=== PATIENT | female | born 1990 | race Caucasian/White ===

== ENCOUNTER 2019-11-02 07:00 | Emergency (ER) | payer MEDICAID, SELFPAY ==
[2019-11-02 07:02] VITALS: BP 112/72; PULSE 78; RESP 18; TEMP 36.7; O2SAT 95; BMI 39.5
[2019-11-02 07:33] VITALS: BMI 39.5
[2019-11-02 07:34] LABS: Microscopic, Urine URINE MICROSCOPIC (MICROSCOPIC)
[2019-11-02 07:35] LABS: Appearance,Urine SL CLOUDY (Clear); Bilirubin,Urine Negative (Negative); Blood, Urine TRACE-I (Negative); Color,Urine YELLOW (Yellow); Glucose,Urine (UA) Negative (Negative); Ketones,Urine Negative (Negative); Leukocyte Esterase,Urine 2+ (Negative); Nitrate,Urine Negative (Negative); Protein,Urine Negative (Negative); Urobilinogen,Urine 0.2 EU/dl (0.2)
--- NOTE | 2019-11-02 07:36 | XR_ITS ---
PROCEDURE: XR CHEST 2V CLINICAL HISTORY: back pain COMPARISON: No exams were available for comparison FINDINGS: The cardiomediastinal silhouette and pulmonary vascularity are within normal limits. The lungs are clear without infiltrates, suspicious nodules, or pleural effusions. No acute bony abnormalities. IMPRESSION: No acute findings. Dictated by: Flip Andres 11/02/2019 17:32 Electronically signed by Flip Andres in [facility] 11/02/2019 17:32
[2019-11-02 07:40] LABS: Urine Pregnancy, HCG Qual. Negative (Negative)
[2019-11-02 07:42] LABS: Bacteria,Urine 2+ /lpf; RBC,Urine Occasional #/hpf (0-3)
[2019-11-02 07:44] LABS: Basophils # 0.1 K/mm3 (0-0.2); Basophils % 0.8 % (0.1-2.0); Eosinophils # 0.8 K/mm3 (0.0-0.4); Eosinophils % 6.3 % (0.1-12.0); Hematocrit 44.1 % (37.0-47.0); Hemoglobin 14.7 g/dL (12.2-16.2); Lymphocytes # 3.2 K/mm3 (0.7-4.5); Lymphocytes % 26.9 % (10-50); Mean Corpuscular HGB Conc 33.4 g/dL (31.8-35.4); Mean Corpuscular Hemoglobin 30.9 pg (27.0-31.2); Mean Corpuscular Volume 92.5 fl (81-99); Mean Platelet Volume 7.9 fl (7.4-10.4); Monocytes # 0.8 K/mm3 (0.1-1.0); Monocytes % 6.7 % (1.7-9.3); Neutrophils # 7.1 K/mm3 (1.8-7.8); Neutrophils % 59.3 % (37.0-80.0); Platelet Count 277 K/mm3 (142-424); Red Blood Count 4.77 M/mm3 (4.20-5.40); Red Cell Distribution Width 13.1 % (11.5-17.5); White Blood Count 11.9 K/mm3 (4.8-10.8)
--- NOTE | 2019-11-02 07:54 | HMH.EDGENADL ---
ED Disposition Clinical Impression: Acute bronchitis, Urinary tract infection Disposition: Home, Self-Care Condition on Discharge: Good Instructions: DI for Low Back Pain Additional Instructions: Follow-up with your primary care provider on Tuesday. Return to the emergency department immediately if symptoms are worse. Prescriptions: levoFLOXacin [Levaquin] 500 mg PO DAILY 7 Days #7 tab Prescription Printed Referrals: Angella Ramachandran MD [Primary Care Provider] - Time of Disposition: 09:44 - Critical Care Critical Care Time: No Attestation: On 11/02/19, the high probability of a clinically significant, sudden or life threatening deterioration of the following system(s) required my full and direct attention, intervention and personal management. The time I documented below is in addition to time spent performing reported procedures but includes the following listed in this critical care notation. Medical Decision Making - Medical Records Medical records reviewed: Yes: I reviewed the patient's medical records. - Mt Inquiry Pt receiving controlled substance: No Vital Signs: 11/02/19 07:02 Temperature 98.1 F Temperature Source Oral Pulse Rate [Right] 78 Respiratory Rate 18 Blood Pressure [Right Arm] 112/72 Blood Pressure Mean [Right Arm] 85 02 Sat by Pulse Oximetry 95 - Lab Data Lab results reviewed: Yes: I reviewed the patient's lab results. Lab Results 11/02/19 07:10: Urine Color Yellow, Urine Appearance Sl cloudy, Urine pH 7.0, Ur Specific [place] 1.020, Urine Protein Negative, Urine Glucose (UA) Negative, Urine Ketones Negative, Urine Blood Trace-i, Urine Nitrate Negative, Urine Bilirubin Negative, Urine Urobilinogen 0.2, Ur Leukocyte Esterase 2+ A, Urine RBC Occasional, Urine WBC 5-10, Ur Squamous Epith Cells 5-10, Urine Bacteria 2+ 11/02/19 07:10: Urine HCG, Qual Negative 11/02/19 07:20: WBC 11.9 H, RBC 4.77, Hgb 14.7, Hct 44.1, MCV 92.5, MCH 30.9, MCHC 33.4, RDW 13.1, Plt Count 277, MPV 7.9, Neut % (Auto) 59.3, Lymph % (Auto) 26.9, [place] % (Auto) 6.7, Eos % (Auto) 6.3, Baso % (Auto) 0.8, Neut # (Auto) 7.1, Lymph # (Auto) 3.2, [place] # (Auto) 0.8, Eos # (Auto) 0.8 H, Baso # (Auto) 0.1 11/02/19 07:20: Sodium 139, Potassium 4.1, Chloride 103, Carbon Dioxide 29, Anion Gap 11.1, BUN 13, Creatinine 0.76, Estimated Creat Clear 190, Estimated GFR 89, Est GFR ( Amer) 108, Glucose 76, Calcium 8.7, Total Bilirubin 0.2, AST 9 L, ALT 20, Alkaline Phosphatase 77, Total Protein 6.6, Albumin 3.2 L, Globulin 3.4 H, Albumin/Globulin Ratio 0.9 L, Amylase 34, Lipase 90, TSH 1.46, Thyroxine (T4) 7.5 Result diagrams: 11/02/19 07:20 11/02/19 07:20 Orders (Tests/Meds): ORDERS Category Date Time Status XR chest 2V Stat Exams 11/02/19 07:36 Taken Urine Culture Stat Micro 11/02/19 07:10 Received General Adult HPI - General Chief complaint: Back Pain/Injury Stated complaint: Blurred vision,dizziness,lower back pain Time Seen by Provider: 11/02/19 07:30 Mode of Arrival: Ambulatory Limitations: No Limitations Description of Symptoms (Recalled from ER Triage Doc. by RN): Pt c/o back pain for 3 weeks, nausea, and dizziness. Denies fever or V/D. - History of Present Illness HPI narrative: 29-year-old female complains of 3 weeks of back pain with 3 days of lightheadedness, nausea, cough and fatigue. Consistency: constant Relieving factors: none Exacerbating factors: none Associated symptoms: cough, malaise, nausea/vomiting, weakness. negative: confusion, chest pain, diaphoresis, fever/chills, headaches, loss of appetite, rash, seizure, shortness of breath, syncope Treatments prior to arrival: none - Related Data Home Medications Medication Instructions Recorded Confirmed Citalopram Hydrobromide [Celexa 40 mg PO DAILY 11/02/19 11/02/19 40mg Tablet] diazePAM [Valium 2mg tablet] 2 mg PO DAILY 11/02/19 11/02/19 Previous Rx's Medication Instructions Recorded levoFLOXacin [Levaquin]
[2019-11-02 07:57] LABS: Alanine Aminotransferase 20 U/L (12-78); Albumin Level 3.2 gm/dL (3.4-5.0); Albumin/Globulin Ratio 0.9 (1.1-1.8); Alkaline Phosphatase 77 U/L (46-116); Amylase 34 U/L (25-115); Anion Gap 11.1 mEq/L (5-15); Aspartate Amino Transferase 9 U/L (15-37); Bilirubin,Total 0.2 mg/dL (0.2-1.0); Blood Urea Nitrogen 13 mg/dL (7-18); Calcium 8.7 mg/dL (8.5-10.1); Carbon Dioxide 29 mmol/L (21.0-32.0); Chloride 103 mmol/L (98-107); Creatinine Clearance Estimated 190 mL/min (50-200); Creatinine,Serum 0.76 mg/dL (0.55-1.02); Estimated Glomerular Filt Rate 89 ml/min (>60); GFR (African American) 108 ML/MIN (>60); Globulin 3.4 gm/dl (1.3-3.2); Glucose 76 mg/dL (74-106); Lipase 90 u/L (73-393); Potassium 4.1 mmoL/L (3.5-5.1); Sodium 139 mmol/L (136-145); T4 (Thyroxine) 7.5 ug/dl (4.7-13.3); Thyroid Stimulating Hormone 1.46 uIU/ml (0.358-3.740); Total Protein,Serum 6.6 gm/dL (6.4-8.2)
--- NOTE | 2019-11-02 08:02 | PC.NURSE ---
Pt to rad
[2019-11-02 09:54] VITALS: BP 132/86; PULSE 74; RESP 18; TEMP 36.8; O2SAT 99
== END 2019-11-02 09:55 | disposition home or self-care (01) ==
PROVIDERS: Emergency Medicine; Emergency Provider Emergency Medicine; PCP Nurse Practitioner
DX: J20.9 Acute bronchitis, unspecified (principal); N30.00 Acute cystitis without hematuria
CPT/HCPCS: 71046; 80053; 81001; 81025; 82150; 83690; 84436; 84443; 85025; 87086; 99283

== ENCOUNTER 2021-07-29 09:46 | Emergency (ER) | payer OTHER, MEDICAID, SELFPAY ==
[2021-07-29 10:02] VITALS: BP 136/88; PULSE 85; RESP 21; TEMP 36.6; O2SAT 98; BMI 44.2
--- NOTE | 2021-07-29 10:34 | XR_ITS ---
PROCEDURE: XR LUMBAR SPINE 2-3V CLINICAL INDICATION: pain Low back pain the COMPARISON: CR XR CHEST 2V from 11/02/2019 FINDINGS: Mild lumbar scoliosis convex right. Degenerative changes in the lower thoracic spine with mild chronic wedging T10-T11 and T12. The lumbar spine has an unremarkable appearance. No fracture or dislocation. No lytic or blastic change. There is an IUD in place. IMPRESSION: Degenerative changes lower thoracic spine with mild lumbar scoliosis convex right otherwise negative Dictated by: Marques Tang MD 07/29/2021 11:12 Marques Tang MD in [facility] 07/29/2021 11:12
[2021-07-29 10:45] LABS: Apearance,Urine Clear (Clear); Bilirubin,Urine Negative (Negative); Blood, Urine Negative (Negative); Color,Urine Yellow (Yellow); Glucose,Urine (UA) Negative (Negative); Ketones,Urine Negative (Negative); Protein,Urine Negative (Negative); UTC Leukocyte Esterase,Urine Negative (Negative); UTC Nitrate,Urine Negative (Negative); UTC Pregnancy Test, Urine Negative (Negative); Urobilinogen,Urine 0.2 EU/dl (0.2)
--- NOTE | 2021-07-29 10:53 | HMH.EDUTC ---
[facility] [place] Clinical Impression: Muscle spasm Disposition: Home, Self-Care Condition on Discharge: Good Instructions: Methocarbamol, DI for Muscle Spasm Additional Instructions: *Ibuprofen as previously prescribed with meal as needed for pain/inflammation *Remember you had a Toradol shot in the clinic today, which is similar to Motrin *Not additional anti-inflammatory like motrin, aleve, advil with the above amount of ibuprofen. You can still take Tylenol every 4 hours as needed if you need something else for pain *Ice 20 minutes every 2 hours for the first 48 hours after the initial injury followed by moist heat every 20 minutes 3-4 times a day to affected area *Muscle relaxer every 8 hours as needed for muscle spasms but remember, it WILL cause drowsiness You cannot take it and drive, operate machinery or care for small children. *Keep this area active, no movement leads to more stiffness, However take it easy and avoid heavy lifting pushing or pulling *Follow up with you family doctor if no improvement for further treatment Prescriptions: methylPREDNISolone [Medrol 4mg tab] 4 mg PO DIRECTED #21 tab Prescription Printed methocarbamoL [Methocarbamol] 500 mg PO BID PRN #10 tab PRN Reason: Muscle Spasm Prescription Printed Referrals: Angella Ramachandran MD [Primary Care Provider] - As needed Forms: Work/School Release Time of Disposition: 11:21 Medical Decision Making - Mt Inquiry Pt receiving controlled substance: No Mt was queried for this patient: No Vital Signs: 07/29/21 10:02 Temperature 98 F Temperature Source Oral Pulse Rate [Left] 85 Respiratory Rate 21 Blood Pressure [Right Arm] 136/88 Blood Pressure Mean [Right Arm] 104 02 Sat by Pulse Oximetry 98 - Lab Data Lab Results 07/29/21 10:34: Urine Color Yellow, Urine Appearance Clear, Urine pH 6.0, Ur Specific [place] 1.020, Urine Protein Negative, Urine Glucose (UA) Negative, Urine Ketones Negative, Urine Blood Negative, Urine Nitrate Negative, Urine Bilirubin Negative, Urine Urobilinogen 0.2, Ur Leukocyte Esterase Negative, Tst Clinic Negative - Radiology Data #1 Image(s): L-Spine Image Reviewed: Yes I have reviewed radiologist's interpretation Degenerative changes lower thoracic spine with mild lumbar scoliosis convex right otherwise negative Medical Decision Narrative: Discussed with patient about transfer to the ED and patient declined state that she has appointment with her PCP tomorrow and she would follow up then [facility] [place] - General Stated complaint: numbness in hands and lower back Time Seen by Provider: 07/29/21 10:53 Mode of Arrival: Ambulatory Source of Information: Patient Limitations: No Limitations Description of Symptoms (Recalled from Triage Doc. by RN): pt c/o pain and numbness in both hands. pt also c/o R arm and L lower back. pt started a new job about a week and a half ago and has been having trouble ever since. 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
[2021-07-29 11:22] VITALS: BP 136/88; PULSE 85; RESP 21; TEMP 36.6
== END 2021-07-29 11:25 | disposition home or self-care (01) ==
PROVIDERS: Emergency Provider Nurse Practitioner; PCP Nurse Practitioner
DX: M62.830 Muscle spasm of back (principal); R20.0 Anesthesia of skin; F17.210 Nicotine dependence, cigarettes, uncomplicated
CPT/HCPCS: 72100; 81003; 81025; 99202; G0463

== ENCOUNTER 2022-02-15 14:36 | Emergency (ER) | payer MEDICAID, SELFPAY ==
[2022-02-15 15:30] VITALS: BP 164/89; PULSE 71; RESP 18; TEMP 36.8; O2SAT 97; BMI 45.4
[2022-02-15 15:51] LABS: UTC Influenza A Antigen Negative (Negative)
[2022-02-15 15:52] LABS: UTC Influenza B Antigen Negative (Negative)
[2022-02-15 15:57] LABS: Strep Scrn Group A (Rapid) Negative (Negative)
[2022-02-15 16:47] VITALS: BP 164/89; PULSE 71; RESP 18; TEMP 36.8; O2SAT 97
--- NOTE | 2022-02-15 16:59 | HMH.EDUTC ---
[facility] [place] Disposition Clinical Impression: Viral syndrome, Bronchitis Disposition: Home, Self-Care Condition on Discharge: Good Instructions: DI for Acute Bronchitis, DI for Viral Syndrome Additional Instructions: Drink plenty of fluids. Take tylenol or ibuprofen for pain or fever. Take the medications as directed. Follow up with your regular doctor. GO TO THE ER FOR ANY WORSENING SYMPTOMS Don't start the oral steroids until tomorrow, since you had the shot here today. The cough medication (promethazine dm) will make you drowsy, so don't drive or operate heavy machinery after taking it. Prescriptions: Promethazine/Dextromethorphan [Promethazine-Dm Syrup] 5 ml PO Q6HP PRN #240 ml PRN Reason: Cough Transmission Status: Received by [facility] methylPREDNISolone [Medrol] 4 mg PO DIRECTED 6 Days #21 packet Transmission Status: Received by [facility] Azithromycin [Z-Giovanny 250mg Tab*] 250 mg PO UD DOSE PK #6 tab Transmission Status: Received by [facility] Referrals: Provider,Referral, [Primary Care Provider] - Forms: Work/School Release Time of Disposition: 17:03 Medical Decision Making - Medical Records Medical records reviewed: No: I reviewed the patient's medical records. - Mt Inquiry Pt receiving controlled substance: No Vital Signs: 02/15/22 15:30 02/15/22 16:47 Temperature 98.2 F 98.2 F Temperature Source Oral Pulse Rate 71 Pulse Rate [Right Brachial] 71 Respiratory Rate 18 18 Blood Pressure 164/89 H Blood Pressure [Right Arm] 164/89 H Blood Pressure Mean [Right Arm] 114 Blood Pressure Source [Right Arm] Automatic Cuff Blood Pressure Position [Right Arm] Sitting 02 Sat by Pulse Oximetry 97 Oxygen Delivery Method Room Air - Lab Data Lab results reviewed: Yes: I reviewed the patient's lab results. Lab Results 02/15/22 15:30: Group A Strep Rapid Negative 02/15/22 15:41: Influenza Type A Ag Negative, Influenza Type B Ag Negative Orders (Tests/Meds): ED MEDICATIONS Discontinued Medications Generic Name Dose Route Start Last Admin Trade Name Freq PRN Reason Stop Dose Admin Methylprednisolone Sodium Succinate 125 mg 02/15/22 16:41 02/15/22 16:47 Methylprednisolone Sod Succ 125mg Vial IM 02/15/22 16:42 125 mg ONCE ONE Administration [facility] [place] HPI - General Stated complaint: hoarseness, GRIFFITH, fever, dizzy Time Seen by Provider: 02/15/22 16:59 Mode of Arrival: Ambulatory Source of Information: Patient Limitations: No Limitations Description of Symptoms (Recalled from Triage Doc. by RN): PATIENT C/O EYE DRAINAGE, FEVER, NAUSEA, LOSS OF VOICE, HEADACHE, SOA AND DRY COUGH X 2 DAYS HEENT Symptoms (Recalled from RN notes): Yes Resp Symptoms (Recalled from RN notes): No Skin Symptoms (Recalled from RN notes): No MS Symptoms (Recalled from RN notes): No Functional Status (Recalled from RN notes): WNL - History of Present Illness Provider Complaint: HE states that he has had a cough chest congestion and low grade fever for the past 3 days. - Related Data Home Medications Medication Instructions Recorded Confirmed Citalopram Hydrobromide 60 mg PO DAILY 11/02/19 02/15/22 [Citalopram 40mg Tablet] diazePAM [Valium 2mg tablet] 2 mg PO TID 11/02/19 02/15/22 Previous Rx's Medication Instructions Recorded Azithromycin [Z-Giovanny 250mg Tab*] 250 mg PO UD DOSE PK #6 tab 02/15/22 Promethazine/Dextromethorphan 5 ml PO Q6HP PRN #240 ml 02/15/22 [Promethazine-Dm Syrup] methylPREDNISolone [Medrol] 4 mg PO DIRECTED 6 Days #21 02/15/22 packet Allergies Allergy/AdvReac Type Severity Reaction Status Date / Time No Known Allergies Allergy Verified 11/02/19 07:33 - Worker's Comp Is this a Worker's Comp case?: No [facility] History - Hepatitis A Screen Drug use history?: No High risk sexual behaviors?: No History of sexually transmitted infection?: No Currently employed?: No Childcare worker?: No Do you have i
== END 2022-02-15 17:14 | disposition home or self-care (01) ==
PROVIDERS: Emergency Provider Nurse Practitioner Family
DX: J20.9 Acute bronchitis, unspecified (principal); B34.9 Viral infection, unspecified; F17.210 Nicotine dependence, cigarettes, uncomplicated
CPT/HCPCS: 87430; 87804; 96372; 99212; G0463

== ENCOUNTER 2022-05-12 08:55 | Emergency (ER) | payer MEDICAID, SELFPAY ==
[2022-05-12 09:16] VITALS: BP 118/76; PULSE 91; RESP 18; TEMP 36.6; O2SAT 98; BMI 44.4
--- NOTE | 2022-05-12 09:23 | HMH.EDUTC ---
[facility] [place] Impression: UTI (urinary tract infection) Qualifiers: Urinary tract infection type: site unspecified Hematuria presence: with hematuria Qualified Code(s): N39.0 - Urinary tract infection, site not specified Disposition: Home, Self-Care Condition on Discharge: Good Instructions: Urinary Tract Infection, Urine Culture, DI for Urinary Tract Infection (UTI), Phenazopyridine Additional Instructions: Drink plenty of fluids. Take tylenol or ibuprofen for pain or fever. Take the medications as directed. Follow up with your regular doctor. GO TO THE ER FOR ANY WORSENING SYMPTOMS The pyridium will make your urine turn orange, this is an expected side effect. It will stain your clothes if it comes into contact with them. We will culture the urine. That will tell what bacteria is causing your infection and which antibiotics will treat it best. Sometimes the first antibiotic we prescribe turns out to not work against different bacteria. So, make sure you follow up within 3 days if you are not getting better. Prescriptions: Ondansetron [Zofran 4mg ODT] 4 mg PO Q8HP PRN #20 tab PRN Reason: Nausea Transmission Status: Received by [facility] Sulfamethoxazole/Trimethoprim [Bactrim DS tablet] 1 each PO BID 7 Days #14 tab Transmission Status: Received by [facility] Phenazopyridine HCl [Pyridium 200mg Tablet] 200 pow PO TID #6 tab Transmission Status: Received by [facility] Referrals: Wayne Willis [Primary Care Provider] - Forms: Work/School Release Time of Disposition: 09:44 Medical Decision Making - Medical Records Medical records reviewed: No: I reviewed the patient's medical records. - Mt Inquiry Pt receiving controlled substance: No Vital Signs: 05/12/22 09:16 05/12/22 09:47 Temperature 97.8 F 97.8 F Temperature Source Oral Pulse Rate 91 H Pulse Rate [Left] 91 H Respiratory Rate 18 18 Blood Pressure 118/76 Blood Pressure [Right Arm] 118/76 Blood Pressure Mean [Right Arm] 90 02 Sat by Pulse Oximetry 98 - Lab Data Lab results reviewed: Yes: I reviewed the patient's lab results. Lab Results 05/12/22 09:31: Urine Color Yellow, Urine Appearance Clear, Urine pH 6.0, Ur Specific [place] >= 1.030, Urine Protein Negative, Urine Glucose (UA) Negative, Urine Ketones Negative, Urine Blood Trace, Urine Nitrate Negative, Urine Bilirubin Negative, Urine Urobilinogen 0.2, Ur Leukocyte Esterase Trace Orders (Tests/Meds): ORDERS Category Date Time Status Urine Culture Stat Micro 05/12/22 09:45 [place] [facility] [place] - General Stated complaint: frequent urinating, burning,back pain Time Seen by Provider: 05/12/22 09:23 - History of Present Illness Provider Complaint: She c/o low back pain and dysuria for the past 2 days. - Related Data Home Medications Medication Instructions Recorded Confirmed Citalopram Hydrobromide 60 mg PO DAILY 11/02/19 02/15/22 [Citalopram 40mg Tablet] diazePAM [Valium 2mg tablet] 2 mg PO TID 11/02/19 02/15/22 Previous Rx's Medication Instructions Recorded Azithromycin [Z-Giovanny 250mg Tab*] 250 mg PO UD DOSE PK #6 tab 02/15/22 Promethazine/Dextromethorphan 5 ml PO Q6HP PRN #240 ml 02/15/22 [Promethazine-Dm Syrup] methylPREDNISolone [Medrol] 4 mg PO DIRECTED 6 Days #21 02/15/22 packet Ondansetron [Zofran 4mg ODT] 4 mg PO Q8HP PRN #20 tab 05/12/22 Phenazopyridine HCl [Pyridium 200 pow PO TID #6 tab 05/12/22 200mg Tablet] Sulfamethoxazole/Trimethoprim 1 each PO BID 7 Days #14 tab 05/12/22 [Bactrim DS tablet] Allergies Allergy/AdvReac Type Severity Reaction Status Date / Time No Known Allergies Allergy Verified 05/12/22 09:30 [facility] History - Hepatitis A Screen Attestation statement:: This patient has been screened for Hepatitis A risk factors. I have reviewed the patient's past medical history: Yes Laterality Cases: Bilateral: Tonsillectomy - Soci
[2022-05-12 09:45] LABS: Apearance,Urine Clear (Clear); Color,Urine Yellow (Yellow)
[2022-05-12 09:46] LABS: Bilirubin,Urine Negative (Negative); Blood, Urine Trace (Negative); Glucose,Urine (UA) Negative (Negative); Ketones,Urine Negative (Negative); Protein,Urine Negative (Negative); Specific Gravity, Urine >= 1.030 (1.005-1.030); UTC Leukocyte Esterase,Urine Trace (Negative); UTC Nitrate,Urine Negative (Negative); Urobilinogen,Urine 0.2 EU/dl (0.2)
[2022-05-12 09:47] VITALS: BP 118/76; PULSE 91; RESP 18; TEMP 36.6
== END 2022-05-12 09:53 | disposition home or self-care (01) ==
PROVIDERS: Emergency Provider Nurse Practitioner Family; PCP Family Medicine
DX: N39.0 Urinary tract infection, site not specified (principal)
CPT/HCPCS: 81003; 87086; 99212; G0463

== ENCOUNTER 2022-05-31 10:08 | Emergency (ER) | payer MEDICAID, SELFPAY ==
[2022-05-31 10:35] VITALS: BP 123/67; PULSE 72; RESP 18; TEMP 36.9; O2SAT 96; BMI 43.5
--- NOTE | 2022-05-31 11:05 | HMH.EDUTC ---
[facility] [place] Disposition Clinical Impression: Encounter for laboratory testing for COVID-19 virus Disposition: Home, Self-Care Condition on Discharge: Good Instructions: DI for COVID-19 (Suspected or Confirmed ), Preventing the Spread of Coronavirus Discharge Instructions Additional Instructions: *Monitor Temp, Over the counter Motrin or Tylenol as directed/as needed Tylenol every 4 hours and Motrin every 6 hours (as long as your family doctor has told you that you can take it) for fever or pain. and straight to ER if unable to lower temp less than 101.0 after medication given *Warm salt water gargles may help to soothe the throat *Throat Lozenges *Warm fluids like tea with honey may help to soothe the throat *Sleep elevated *Humidifier/Vaporizer Follow up IMMEDIATELY for new or worsening symptoms or no Noticeable improvement over the next 48-72 hours. 911 for difficulty breathing or swallowing You were tested for today for COVID19 your test result should be back in the next 24-48 hours, you may check your results on the [facility] My Health Portal Make sure to take your Vitamins Vit. C Vit D and Zinc if you can take them Prescriptions: Meclizine HCl [Antivert 12.5mg tablet] 12.5 mg PO Q8HP PRN #9 tab PRN Reason: Dizziness Transmission Status: Pending to [facility] methylPREDNISolone [Medrol 4mg tab] 4 mg PO DIRECTED #21 tab Transmission Status: Pending to [facility] Cefdinir [Omnicef 300mg Capsule] 300 mg PO BID #20 cap Transmission Status: Pending to [facility] Referrals: Edel Honeycutt APRN [Primary Care Provider] - As needed Forms: Work/School Release Medical Decision Making - Mt Inquiry Pt receiving controlled substance: No Mt was queried for this patient: No Vital Signs: 05/31/22 10:35 Temperature 98.5 F Temperature Source Oral Pulse Rate [Right Brachial] 72 Respiratory Rate 18 Blood Pressure [Right Arm] 123/67 Blood Pressure Mean [Right Arm] 85 Blood Pressure Source [Right Arm] Automatic Cuff Blood Pressure Position [Right Arm] Sitting 02 Sat by Pulse Oximetry 96 Oxygen Delivery Method Room Air Orders (Tests/Meds): ORDERS Category Date Time Status Covid-19 Nasal PCR ([facility]) Routine Lab 05/31/22 10:32 Received [facility] [place] HPI - General Stated complaint: covid test Time Seen by Provider: 05/31/22 10:50 Mode of Arrival: Ambulatory Source of Information: Patient Limitations: No Limitations Description of Symptoms (Recalled from Triage Doc. by RN): PATIENT C/O NAUSEA, DIZZINESS, EAR ACHE AND BODY ACHES. EXPOSED TO COVID LAST WEEK HEENT Symptoms (Recalled from RN notes): Yes Resp Symptoms (Recalled from RN notes): No Skin Symptoms (Recalled from RN notes): No MS Symptoms (Recalled from RN notes): No Functional Status (Recalled from RN notes): WNL - History of Present Illness Provider Complaint: Patient states that she was exposed to someone that has COVID last week States that she is now having nausea, dizziness on and off, pain and pressure in both ears and body aches State that today she was still feeling bad so she came in to get checked out - Related Data Home Medications Medication Instructions Recorded Confirmed Citalopram Hydrobromide 60 mg PO DAILY 11/02/19 02/15/22 [Citalopram 40mg Tablet] diazePAM [Valium 2mg tablet] 2 mg PO TID 11/02/19 02/15/22 Previous Rx's Medication Instructions Recorded Azithromycin [Z-Giovanny 250mg Tab*] 250 mg PO UD DOSE PK #6 tab 02/15/22 Promethazine/Dextromethorphan 5 ml PO Q6HP PRN #240 ml 02/15/22 [Promethazine-Dm Syrup] methylPREDNISolone [Medrol] 4 mg PO DIRECTED 6 Days #21 02/15/22 packet Ondansetron [Zofran 4mg ODT] 4 mg PO Q8HP PRN #20 tab 05/12/22 Phenazopyridine HCl [Pyridium 200 pow PO TID #6 tab 05/12/22 200mg Tablet] Sulfamethoxazole/Trimethoprim 1 each PO BID 7 Days #14 tab 05/12/22 [Bactrim DS tablet] Fluconazole [Diflucan 150mg tab] 150 mg PO ONCE #1 tab 05/18/22 Cefdinir
[2022-05-31 11:14] VITALS: BP 123/67; PULSE 72; RESP 18; TEMP 36.9; O2SAT 96
== END 2022-05-31 11:16 | disposition home or self-care (01) ==
PROVIDERS: Emergency Provider Nurse Practitioner; PCP Nurse Practitioner Family
DX: Z20.822 Contact with and (suspected) exposure to COVID-19 (principal); R11.0 Nausea
CPT/HCPCS: 99212; C9803; G0463; U0003; U0005

== ENCOUNTER → 2023-01-07 07:45 | Outpatient (CLI) | payer MEDICAID, SELFPAY ==
--- NOTE | 2023-01-07 07:45 | US_ITS ---
FINAL REPORT TECHNIQUE: Sonographic images of the pelvis were obtained transvaginally. CLINICAL HISTORY: severe left-sided pelvic pain COMPARISON: none FINDINGS: The uterus is anteverted and anteflexed. It measures 7.5 x 3.3 x 5.3 cm. The endometrial stripe measures 3 mm. The myometrium is homogeneous. There are nabothian cysts in the cervix. IUD is noted within the endometrial cavity. The right ovary measures 2.8 x 2.0 x 2.5 cm. It is normal in appearance. The left ovary measures 3.1 x 2.0 x 2.0 cm. It is normal in appearance. Color imaging to the ovaries is within normal limits. There is no free fluid. IMPRESSION: IUD within the endometrial cavity. Otherwise unremarkable ultrasound of the pelvis for age. Reviewed, Interpreted and Dictated by Danae Kohli MD Transcribed by Debbie Figueroa Authenticated and [facility]
== END ==
PROVIDERS: PCP Nurse Practitioner Family; Visit Provider Nurse Practitioner Obstetrics & Gynecology
DX: R10.2 Pelvic and perineal pain (principal)
CPT/HCPCS: 76830

== ENCOUNTER → 2023-02-24 09:57 | Outpatient (CLI) | payer MEDICAID, SELFPAY ==
[2023-02-24 10:21] LABS: Basophils # 0.1 K/mm3 (0-0.2); Basophils % 0.7 % (0.1-2.0); Eosinophils # 0.3 K/mm3 (0.0-0.4); Eosinophils % 3.3 % (0.1-12.0); Hematocrit 42.8 % (37.0-47.0); Hemoglobin 13.8 g/dL (12.2-16.2); Lymphocytes # 2.6 K/mm3 (0.7-4.5); Mean Corpuscular HGB Conc 32.2 g/dL (31.8-35.4); Mean Corpuscular Hemoglobin 29.4 pg (27.0-31.2); Mean Corpuscular Volume 91.2 fl (81-99); Mean Platelet Volume 8.1 fl (7.4-10.4); Monocytes # 0.6 K/mm3 (0.1-1.0); Monocytes % 6.7 % (1.7-9.3); Neutrophils # 5.1 K/mm3 (1.8-7.8); Neutrophils % 59.4 % (37.0-80.0); Platelet Count 262 K/mm3 (142-424); Red Cell Distribution Width 13.5 % (11.5-17.5); White Blood Count 8.6 K/mm3 (4.8-10.8)
[2023-02-24 11:09] LABS: Chloride 104 mmol/L (98-107); Potassium 4.4 mmoL/L (3.5-5.1); Sodium 137 mmol/L (136-145)
[2023-02-24 11:12] LABS: Alanine Aminotransferase 18 U/L (12-78); Albumin Level 3.9 g/dl (3.5-5.0); Albumin/Globulin Ratio 1.6 (1.1-1.8); Alkaline Phosphatase 62 U/L (38-126); Anion Gap 10.4 mEq/L (5-15); Aspartate Amino Transferase 19 U/L (14-36); Bilirubin,Total 0.4 mg/dl (0.2-1.3); Blood Urea Nitrogen 13 mg/dl (7-17); Calcium 8.9 mg/dl (8.4-10.2); Carbon Dioxide 27 mmol/L (22.0-30.0); Estimated Glomerular Filt Rate 83 ml/min (>60); GFR (African American) 100 ML/MIN (>60); Globulin 2.5 g/dL (1.3-3.2); Glucose 84 mg/dl (74-100); Total Protein,Serum 6.4 g/dl (6.3-8.2)
[2023-02-24 11:29] LABS: HCG,Quantitative < 2 mIU/ml (0-5.42)
== END ==
PROVIDERS: PCP Nurse Practitioner; Visit Provider Nurse Practitioner Obstetrics & Gynecology
DX: Z01.812 Encounter for preprocedural laboratory examination (principal); R10.2 Pelvic and perineal pain
CPT/HCPCS: 36415; 80053; 84702; 85025

== ENCOUNTER 2023-03-03 05:54 | Day surgery (SDC) | payer MEDICAID, SELFPAY ==
[2023-03-01 13:02] VITALS: BMI 41.9
[2023-03-03] VITALS (10 sets, daily range): BP systolic 119–157; BP diastolic 74–88; PULSE 53–92; RESP 14–18; TEMP 36.2–37; O2SAT 96–100
[2023-03-03 06:19] LABS: Urine Pregnancy, HCG Qual. Negative (Negative)
--- NOTE | 2023-03-03 07:11 | EXP.ANES.CKL ---
[facility] Disclaimer: The information contained in this section may have been updated after the patient was seen, as this information can be updated by other users. Medical History Anxiety Depression Surgical History History of tonsillectomy Family History Other Alcoholism Asthma Cancer Coronary artery disease Diabetes FHx: mental illness Hyperlipidemia Hypertension Social History Smoking Status: Current every day smoker alcohol intake: never substance use type: former substance user and marijuana current occupational status: unemployed and other Travel in the last 8 weeks: None [facility] Anesthesia Checklist Patient Identification Patient Identification: Verbal (Name & ) Structural Data Admitted From: Home Planned Operative Procedure/s: dx laparoscopy Consent for Planned Operative Procedure(s) Verified: Yes Additional verifications Anesthesia Reactions: No Hx Blood Transfusions: No Blood Transfusion Reaction: No Airway Assessment C-Spine Mobility Assessed: Yes TMJ Mobility Assessed: Yes Dentition: Good Dentition Neurological Assessment Level of Consciousness: Awake, Alert and Appropriate Anesthesia Plan Anesthesia Risk discussed: Yes Anesthesia Plan: Verified ASA Class: II Anesthesia Type: General
--- NOTE | 2023-03-03 08:46 | EXP.ANES.CKL ---
[facility] Disclaimer: The information contained in this section may have been updated after the patient was seen, as this information can be updated by other users. Medical History Anxiety Depression Surgical History History of tonsillectomy Family History Other Alcoholism Asthma Cancer Coronary artery disease Diabetes FHx: mental illness Hyperlipidemia Hypertension Social History Smoking Status: Current every day smoker alcohol intake: never substance use type: former substance user and marijuana current occupational status: unemployed and other Travel in the last 8 weeks: None [facility] Anesthesia Checklist Patient Identification Patient Identification: Arm Band and Verbal (Name & ) Structural Data Admitted From: Home Planned Operative Procedure/s: Diagnostic Laparoscopy Consent for Planned Operative Procedure(s) Verified: Yes Verified Documents: Surgical Consent NPO Status Verified Time NPO: 01:00 Chart Verification Results Verified: HCG Additional verifications Anesthesia Reactions: No Hx Blood Transfusions: No Blood Transfusion Reaction: No Airway Assessment C-Spine Mobility Assessed: Yes TMJ Mobility Assessed: Yes Dentition: Good Dentition Neurological Assessment Level of Consciousness: Awake, Alert and Appropriate Anesthesia Plan Anesthesia Risk discussed: Yes ASA Class: II Anesthesia Type: General
--- NOTE | 2023-03-03 08:47 | EXP.ANES.I ---
[facility] Anesthesia Record Part I Anesthesia Record I Intake, IV Amount: 800 Estimated blood loss (mL): 5 Urine output (mL): 0 Blood Pressure: 157/76 SaO2: 100 Pulse Rate: 92 Respiratory Rate: 14 Temperature: 98.6 F Patient is:: Drowsy, Nasal O2 and Stable Stable to PACU at:: 08:44
--- NOTE | 2023-03-03 08:57 | EXP.OP.NOTE ---
Date of procedure: 03/03/23 Pre-op Diagnosis:: Pelvic pain, possible endometriosis, dysmenorrhea Post-op Diagnosis:: Pelvic pain, endometriosis left pelvic sidewall, pelvic congestion syndrome, hydatid of morganii Procedure performed:: Diagnostic laparoscopy, resection of endometriosis, lysis of adhesions Surgeon:: Fawad Whitney MD [employer]IOR [employer] DEVELOPER:: John Jaffe Anesthesia: GETA Estimated blood loss (mL): 25 Clinical Note:: She is a 32-year-old lady who complains of severe left-sided pain. It comes and goes. Its worse with her period. After having discussed the risks and benefits we elected perform a diagnostic laparoscopy with possible resection of endometriosis. Operative findings:: She had a normal appearing anteverted uterus. There was an IUD within the uterine cavity. The strings were present at the cervix. She had normal-appearing ovaries bilaterally. The tubes were followed to their fimbriated end. On the left side there was a 1 cm paratubal cyst. The appendix was visualized and appeared normal. The upper abdomen was visualized and appeared normal. There was what appeared to be endometriosis on the left pelvic sidewall near the left uterosacral ligament insertion to the cervix. There were powder burn areas here. There was no evidence of endometriosis elsewhere. The bladder flap was visualized and appeared normal. The attachment of the sigmoid colon on the left side seem to be extra long and prominent so I elected to take this down with harmonic scalpel. There was also what appeared to be varicosities of the infundibulopelvic ligament on the left side consistent with pelvic congestion syndrome. Operative note:: She was taken the operating room where general anesthesia was found to be adequate. She was prepped and draped in normal sterile fashion in the semilithotomy position. A weighted speculum is placed in vagina and the anterior lip of the cervix was grasped with a tenaculum. I then inserted an acorn uterine manipulator into the cervical canal. I changed gloves and then injected 10 cc of ropivacaine around the umbilicus. I made a small incision and inserted a Veress needle into the abdominal cavity. The abdominal cavity was then insufflated with carbon oxide gas to a pressure of 20 mmHg. I then inserted a 5 mm trocar under direct vision. I injected through and through the pubic hairline, made a small incision and inserted a 5 mm trocar here under direct vision. I then injected through and through in the left lower quadrant staying lateral to the inferior epigastric arteries and inserted a 5 mm trocar here under direct vision. The findings were as previously dictated. Using harmonic scalpel and grasping the pelvic sidewall on tension with a [place] grasper I was able to resect an approximately 1 cm? area of pelvic sidewall on the left side that contained what appeared to be endometriosis. I then grasped the sigmoid colon at its attachment to the left pelvic sidewall and took down some of the adhesions here. There was a small serosal tear on the sigmoid and this seems to be very superficial but was bleeding so I put Lane on this area. I then took pictures of the entire pelvis. I then injected approximately 25 cc of ropivacaine into the pelvis and remove the secondary trocars under direct vision. The sites were hemostatic. The gas was let out of the abdomen and remove the primary trocar. All trocar sites were closed with subcuticular 4-0 Monocryl suture. Sterile dressings were applied. She tolerated the procedure well and was taken to the recovery room in excellent condition. All sponge, instrument and needle counts were correct. The estimated blood loss was less than 25 cc. Condition: stable Disposition: PACU Specimens:: Left pelvic sidewall with endometriosis Complications:: None
--- NOTE | 2023-03-03 10:32 | P.PNANES_ITS ---
[facility] Anesthesia Record Part II Anesthesia Record Part II Discharge Time: 09:14 Destination: Surgical Day Care (OP Surgery) PACU nurse assessment reviewed?: Yes Patient Condition:: Good Anesthesia Complications:: None Swallowing reflex intact?: Yes Cyanosis?: No Blood Pressure: 133/74 Pulse Rate: 65 Temperature: 97.2 F Mental Status: Alert & Oriented Pain level:: 0 Nausea and/or vomitting:: None Intake, IV Amount: 0
== END 2023-03-03 09:46 | disposition home or self-care (01) ==
PROVIDERS: PCP Nurse Practitioner; Visit Provider Nurse Practitioner Obstetrics & Gynecology
PROC: (CPT 49320; principal; 2023-03-03 07:30)
DX: N80.352 Endometriosis of the left pelvic sidewall, unspecified depth (principal); Q50.5 Embryonic cyst of broad ligament; R10.2 Pelvic and perineal pain; N94.89 Other specified conditions associated with female genital organs and menstrual cycle
CPT/HCPCS: 58662; 81025; 96374; J2405

== ENCOUNTER 2023-04-15 15:09 | Emergency (ER) | payer MEDICAID, SELFPAY ==
[2023-04-15 15:15] VITALS: BP 142/71; PULSE 73; RESP 19; TEMP 36.9; O2SAT 100; BMI 43.2
--- NOTE | 2023-04-15 15:35 | EXP.UTC ---
Discharge Plan Disposition Patient Disposition: Home, Self-Care Condition: Good Prescriptions Prescriptions: New sulfamethoxazole-trimethoprim [Bactrim DS] 800-160 mg tablet 1 tab PO BID 7 Days Qty: 14 0RF amoxicillin-pot clavulanate 875-125 mg Tablet 1 tab PO Q12H 7 Days Qty: 14 0RF No Action zinc gluconate-vitamin C 6.4-60 mg tablet,chewable 1 tab PO DAILY meclizine 25 mg tablet 25 mg PO DAILY magnesium oxide 400 mg (241.3 mg magnesium) tablet 400 mg PO DAILY ParaGard T 380A 380 square mm intrauterine device 1 mm2 intrauterine MONTHLY citalopram 40 MG tablet 60 mg PO DAILY diazepam 2 MG tablet 2 mg PO TID ondansetron 4 mg Tablet,Disintegrating 4 mg PO Q4H PRN (Reason: Nausea And Vomiting) Qty: 30 0RF Referrals Follow up/Referrals: Fransisca Esquivel APRN [Primary Care Provider] - See instructions Activity Restrictions/Add. Instructions Additional Instructions/Restrictions: Warm sitz bath 4 times daily Take medication as prescribed Follow up with OBGYN gregory macedo for wound culture results and recheck of area Straight to ER if any life threatening symptoms Wound culture should be back in the next 48 hours make sure to follow up with OBGYN to get results and further treatment Eating Yogurt or taking a probiotic may help prevent medication from upsetting your stomach Clinical Impressions Clinical Impression: Bartholin's gland abscess Instructions Patient Instructions: DI for Bartholin Gland Cyst Discharge ED Provider: Nohemy Mcintyre [facility] General Stated complaint: poss abcess on vagina Mode of Arrival: Ambulatory Source of Information: Patient Limitations: No Limitations Time Seen by Provider: 04/15/23 15:35 Description of Symptoms (Recalled from Triage Doc. by RN): PATIENT C/O POSSIBLE ABSCESS TO GENITAL AREA X 1 WEEK HEENT Symptoms (Recalled from RN notes): No Resp Symptoms (Recalled from RN notes): No Skin Symptoms (Recalled from RN notes): No MS Symptoms (Recalled from RN notes): No Functional Status (Recalled from RN notes): WNL History of Present Illness Provider Complaint: Patient states that she noticed a hard sore area on the inside of her left labia about a week or so ago States that it has continued to get larger but it busted and has been draining and still sore and tender so today when it was still hurting she came in to get it checked Related Data Home Medications Medication Instructions Recorded Confirmed citalopram 40 mg tablet 60 mg PO DAILY Anxiety 11/02/19 03/21/23 diazepam 2 mg tablet 2 mg PO TID Anxiety 11/02/19 03/21/23 copper 380 square mm intrauterine 1 mm2 intrauterine MONTHLY 01/10/23 03/21/23 device (ParaGard T 380A) control magnesium oxide 400 mg (241.3 mg 400 mg PO DAILY Supplement 01/10/23 03/21/23 magnesium) tablet meclizine 25 mg tablet 25 mg PO DAILY dizziness 01/10/23 03/21/23 zinc gluconate-vitamin C 6.4 mg-60 1 tab PO DAILY Supplement 02/24/23 03/21/23 mg chewable tablet Previous Rx's Medication Instructions Recorded ondansetron 4 mg disintegrating 4 mg PO Q4H PRN Nausea And 03/03/23 tablet Vomiting #30 tabs amoxicillin 875 mg-potassium 1 tab PO Q12H 7 days #14 tabs 04/15/23 clavulanate 125 mg tablet sulfamethoxazole 800 1 tab PO BID 7 days #14 tabs 04/15/23 mg-trimethoprim 160 mg tablet (Bactrim DS) Allergies Allergy/AdvReac Type Severity Reaction Status Date / Time No Known Allergies Allergy Verified 03/21/23 10:43 Worker's Comp Is this a Worker's Comp case?: No [facility] Disclaimer: The information contained in this section may have been updated after the patient was seen, as this information can be updated by other users. Medical History (Updated 04/15/23 @ 15:49 by Nohemy Mcintyre APRN) Anxiety Depression Endometriosis determined by laparoscopy Surgical History (Updated 03/21/23 @ 10:45 by ELIJAH Aquino) History of surgery History of tonsillectom
[2023-04-15 15:43] VITALS: BP 142/71; PULSE 73; RESP 19; TEMP 36.9; O2SAT 100
== END 2023-04-15 15:52 | disposition home or self-care (01) ==
PROVIDERS: Emergency Provider Nurse Practitioner; PCP Nurse Practitioner
DX: N75.1 Abscess of Bartholin's gland (principal); F17.210 Nicotine dependence, cigarettes, uncomplicated; F41.9 Anxiety disorder, unspecified; F32.A Depression, unspecified
CPT/HCPCS: 87070; 87077; 87186; 87205; 99212; 99214; G0463

== ENCOUNTER 2023-04-27 06:14 | Emergency (ER) | payer OTHER, MEDICAID, SELFPAY ==
[2023-04-27 06:16] VITALS: BP 132/82; PULSE 58; RESP 16; TEMP 36.8; O2SAT 98; BMI 41.9
[2023-04-27 06:32] VITALS: PULSE 63; O2SAT 97
[2023-04-27 06:40] VITALS: BP 136/72; PULSE 61; RESP 16; TEMP 36.8; O2SAT 98
--- NOTE | 2023-04-27 07:48 | HMH.EDGENADL ---
Discharge Plan Disposition Patient Disposition: Home, Self-Care Chief Complaint: PAIN Prescriptions Prescriptions: No Action zinc gluconate-vitamin C 6.4-60 mg tablet,chewable 1 tab PO DAILY meclizine 25 mg tablet 25 mg PO DAILY magnesium oxide 400 mg (241.3 mg magnesium) tablet 400 mg PO DAILY ParaGard T 380A 380 square mm intrauterine device 1 mm2 intrauterine MONTHLY citalopram 40 MG tablet 60 mg PO DAILY diazepam 2 MG tablet 2 mg PO TID ondansetron 4 mg Tablet,Disintegrating 4 mg PO Q4H PRN (Reason: Nausea And Vomiting) Qty: 30 0RF sulfamethoxazole-trimethoprim [Bactrim DS] 800-160 mg tablet 1 tab PO BID 7 Days Qty: 14 0RF amoxicillin-pot clavulanate 875-125 mg Tablet 1 tab PO Q12H 7 Days Qty: 14 0RF Referrals Follow up/Referrals: Fransisca Esquivel APRN [Primary Care Provider] - See instructions Clinical Impressions Clinical Impression: Cervical radicular pain Instructions Patient Instructions: DI for Cervical Radiculopathy Discharge ED Provider: [facility] ([facility] General Adult HPI General Chief complaint: PAIN Stated complaint: WC 04/26/23 0500 Right arm pain; Left wrist pain Time Seen by Provider: 04/27/23 06:30 Mode of Arrival: Ambulatory Source of Information: Patient and Medical Record Limitations: No Limitations Description of Symptoms (Recalled from ER Triage Doc. by RN): pt c/o bilateral hand pain,rt arm pain that started today,rt shoulder numbness that started yesterday morning. pt denies any accident or trauma but states she just began job 3 weeks ago and does repeative motions History of Present Illness HPI narrative: this is a workman comp issue - atraumatic injury but pt stated repetitive use - with rt sided upper neck and rt upper ext parasthesia and also to lt hand - no rash - inc sx with use and movement Onset (ago): hour(s) Location: neck and upper extremity Radiation: neck Severity: moderate Quality: burning and aching Consistency: intermittent Associated symptoms: denies other symptoms Treatments prior to arrival: none Related Data Home Medications Medication Instructions Recorded Confirmed citalopram 40 mg tablet 60 mg PO DAILY Anxiety 11/02/19 03/21/23 diazepam 2 mg tablet 2 mg PO TID Anxiety 11/02/19 03/21/23 copper 380 square mm intrauterine 1 mm2 intrauterine MONTHLY 01/10/23 03/21/23 device (ParaGard T 380A) control magnesium oxide 400 mg (241.3 mg 400 mg PO DAILY Supplement 01/10/23 03/21/23 magnesium) tablet meclizine 25 mg tablet 25 mg PO DAILY dizziness 01/10/23 03/21/23 zinc gluconate-vitamin C 6.4 mg-60 1 tab PO DAILY Supplement 02/24/23 03/21/23 mg chewable tablet Previous Rx's Medication Instructions Recorded ondansetron 4 mg disintegrating 4 mg PO Q4H PRN Nausea And 03/03/23 tablet Vomiting #30 tabs amoxicillin 875 mg-potassium 1 tab PO Q12H 7 days #14 tabs 04/15/23 clavulanate 125 mg tablet sulfamethoxazole 800 1 tab PO BID 7 days #14 tabs 04/15/23 mg-trimethoprim 160 mg tablet (Bactrim DS) Allergies Allergy/AdvReac Type Severity Reaction Status Date / Time No Known Allergies Allergy Verified 03/21/23 10:43 [facility] Disclaimer: The information contained in this section may have been updated after the patient was seen, as this information can be updated by other users. Medical History (Updated 04/27/23 @ 07:56 by Suresh CHAMBERS)MD) Anxiety Depression Endometriosis determined by laparoscopy Surgical History (Updated 03/21/23 @ 10:45 by ELIJAH Aquino) History of surgery History of tonsillectomy Family History Other Alcoholism Asthma Cancer Coronary artery disease Diabetes FHx: mental illness Hyperlipidemia Hypertension Social History Smoking Status: Current every day smoker alcohol intake: never substance use type:
[2023-05-23 09:37] LABS: COC Drug Screen Collection Only
== END 2023-04-27 06:40 | disposition home or self-care (01) ==
PROVIDERS: Emergency Provider Emergency Medicine; PCP Nurse Practitioner
DX: M54.12 Radiculopathy, cervical region (principal); F17.210 Nicotine dependence, cigarettes, uncomplicated; F41.9 Anxiety disorder, unspecified; F32.A Depression, unspecified
CPT/HCPCS: 99282; 99283

== ENCOUNTER → 2023-05-25 14:57 | Outpatient (CLI) | payer MEDICAID, SELFPAY ==
--- NOTE | 2023-05-25 15:01 | XR_ITS ---
FINAL REPORT CLINICAL HISTORY: neck pain FINDINGS: SPINE CERVICAL COMPLETE/FLEXION & EXT Seven views of the cervical spine were obtained. There is no acute fracture. The disc spaces are well-preserved. There is no malalignment with flexion and extension maneuvers. Soft tissues are unremarkable. IMPRESSION: No acute process. Reviewed, Interpreted and Dictated by Danae Kohli MD Transcribed by Chloe Francois Authenticated and [facility]
== END ==
PROVIDERS: PCP Nurse Practitioner; Visit Provider Specialist
DX: M54.12 Radiculopathy, cervical region (principal)
CPT/HCPCS: 72052

== ENCOUNTER → 2024-08-20 20:10 | Outpatient (CLI) | payer MEDICAID, SELFPAY | PROVIDERS: PCP Nurse Practitioner; Visit Provider Specialist | DX: G47.30 Sleep apnea, unspecified (principal); G47.52 REM sleep behavior disorder | CPT/HCPCS: 95810 ==